=== PATIENT | male | born 1960 | race African-American/Black ===

== ENCOUNTER 2016-07-19 12:37 | Emergency (ER) | payer OTHER ==
[~2016-07-19] VITALS: Ht 170.2 cm; Wt 79.0 kg
[2016-07-19 12:46] VITALS: TEMP 36.6; Ht 170.2 cm; Wt 79.0 kg
[2016-07-19] MEDS ORDERED: OXYCODONE HCL IR 5 MG TAB (IMMEDIATE RELEASE) PO STA (13:03)
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
--- NOTE | 2016-07-19 14:04 | DIAGNOSTIC IMAGING REPORT ---
CT OF THE CERVICAL SPINE WITHOUT CONTRAST CLINICAL HISTORY: Trauma. COMPARISON STUDY: No previous studies for comparison. TECHNIQUE: Helical axial images of the cervical spine were obtained without IV contrast. Sagittal and coronal reconstructions were viewed. FINDINGS: There is an acute nondisplaced fracture of the left articulating facet of C7. Note is made of slight widening of the C6-C7 interspinous distance. There is slight anterolisthesis of C6 on C7. There is extensive anterior osteophytosis. There is also ossification posterior to C2 and C3. No additional acute fractures are present. There is no prevertebral edema. There is moderate multilevel degenerative disc disease with mild multilevel facet arthrosis. Central canal and neural foramen are suboptimally assessed by CT. There is suspected disc osteophyte complex at the C6-C7 level. IMPRESSION: Acute nondisplaced fracture of the left articulating facet of C7 with apparent slight widening of the C6-C7 interspinous distance and minimal anterolisthesis of C6 on C7. These findings raise the possibility of ligamentous injury superimposed upon degenerative changes at this level. An MRI of the cervical spine is recommended. Electronically signed by: Martinez Gonzalez M.D. 07/19/2016 2:02 PM Dictated Date/Time: 07/19/2016 1:52 PM
[2016-07-19] MEDS ORDERED: ONDANSETRON INJ 2 MG/ML 2 ML VIAL IV STA (14:15)
[2016-07-19] MEDS ORDERED: MoRPHine SULFATE 4 MG/ML 1 ML CARP\\VIAL IV STA (14:15)
[2016-07-19] MEDS ORDERED: MoRPHine SULFATE 10 MG/ML CARP/VIAL IV STA (15:12)
--- NOTE | 2016-07-19 16:35 | DIAGNOSTIC IMAGING REPORT ---
CERVICAL SPINE MRI HISTORY: Cervical spine fracture. eval for ligamentous injury TECHNIQUE: Multiplanar multisequence MRI of the cervical spine was performed without the use of contrast. COMPARISON STUDY: Cervical spine CT 07/19/2016. FINDINGS: There is again noted a left C7 facet fracture. There is edema within the interspinous locations of the C5-T2 level suggesting ligamentous injury. There is also extensive soft tissue edema within the posterior neck from the occiput through the upper thoracic region. This is located within posterior neck muscles consistent with ligamentous and muscular injury. There is also tear of the ligamentum flavum at the C6-C7 level best seen on sagittal image 9. Alignment of the vertebral bodies are intact. There is mild disc space narrowing at C6-C7. The visualized posterior fossa is unremarkable. Cervical spinal cord demonstrates a normal signal intensity. C2-C3: Ossification the posterior longitudinal ligament resulting in moderate central canal narrowing and qnhm-nz-mikilghe cord deformity. C3-C4: Small broad-based posterior disc osteophyte complex resulting in mild central canal and moderate bilateral neural foraminal narrowing. C4-C5: Small broad-based posterior disc ossified complex resulting in moderate bilateral neural foraminal narrowing. No significant central canal narrowing. C5-C6: No significant central canal narrowing. There is mild left neural foraminal narrowing. C6-C7: Suboptimal evaluated due to motion artifact. There appears to be a broad-based posterior disc protrusion which abuts the anterior cord and results in mild to moderate cord deformity. There is also small amount of epidural fluid adjacent to the herniated disc posterior to the C6 and C7 vertebral bodies which measures up to 2.5 mm in thickness. This could represent a tiny epidural hematoma. C7-T1: Ossification of the posterior longitudinal ligament without significant central canal or neural foraminal narrowing. IMPRESSION: 1. There is again noted a left C7 facet fracture. 2. Tear through the ligamentum flavum at C6-C7. There is also edema within the interspinous locations from C5 through T2 consistent with additional sites of ligamentous injury. 3. Soft tissue edema within the posterior cervical and upper thoracic region consistent with additional sites of muscular/ligamentous injury. 4. A broad-based posterior disc protrusion at C6-C7 resulting mild to moderate anterior cord deformity which may be acute due to the fracture at this location. There is also suggestion of trace epidural fluid posterior to the C6 and C7 levels which could represent a tiny epidural hematoma. 5. There is also mild to moderate anterior cord deformity at C2-C3 due to the ossification of the posterior longitudinal ligament. Electronically signed by: Yeison Branch M.D. 07/19/2016 4:33 PM Dictated Date/Time: 07/19/2016 4:18 PM
[2016-07-19] MEDS ORDERED: SERT-234 PO (16:38)
[2016-07-19] MEDS ORDERED: HYDR50CA2 PO (16:38)
[2016-07-19] MEDS ORDERED: ATOR-24 PO (16:38)
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
[2016-07-19] MEDS ORDERED: SODIUM CHLORIDE 0.9% 1000ML 1,000 ML IV ONE (17:06)
[2016-07-19] MEDS ORDERED: SODIUM CHLORIDE 0.9% 1000ML 1,000 ML IV STA (17:06)
[2016-07-19 18:16] VITALS: BP 145/91; PULSE 88; O2SAT 98
== END 2016-07-19 18:00 | disposition short-term general hospital (02) ==
LOC: EDBD 12:37 → C.EDB 12:41
DX: S12.600A Unspecified displaced fracture of seventh cervical vertebra, initial encounter for closed fracture (principal); S06.4X0A Epidural hemorrhage without loss of consciousness, initial encounter; M50.223 Other cervical disc displacement at C6-C7 level; Y04.0XXA Assault by unarmed brawl or fight, initial encounter; Y92.141 Dining room in prison as the place of occurrence of the external cause; Y99.8 Other external cause status; Z79.899 Other long term (current) drug therapy